=== PATIENT | male | born 1990 | race Two or more races ===

== ENCOUNTER 2023-05-26 15:51 | Emergency (ER) | payer OTHER ==
[~2023-05-26] VITALS: Ht 182.9 cm; Wt 86.1 kg
[2023-05-26] MEDS ORDERED: IBUP1TAB5 PO (18:32)
[2023-05-26] MEDS ORDERED: CYCL-839 PO (18:32)
[2023-05-26] MEDS ORDERED: HYDROcodone-ACET 5/325MG TAB PO ONE (18:45)
[2023-05-26] MEDS ORDERED: ONDANSETRON ODT 4 MG TAB PO ONE (18:45)
[2023-05-26 18:53] VITALS: BP 130/77; PULSE 80; RESP 16; TEMP 97.9; O2SAT 98
== END 2023-05-26 18:24 | disposition home or self-care (01) ==
LOC: ER 15:51
DX: S06.0X1A Concussion with loss of consciousness of 30 minutes or less, initial encounter (principal); S13.8XXA Sprain of joints and ligaments of other parts of neck, initial encounter; S33.5XXA Sprain of ligaments of lumbar spine, initial encounter; S00.83XA Contusion of other part of head, initial encounter; S20.214A Contusion of middle front wall of thorax, initial encounter; R10.9 Unspecified abdominal pain; Z79.899 Other long term (current) drug therapy; V43.52XA Car driver injured in collision with other type car in traffic accident, initial encounter; Y93.I9 Activity, other involving external motion; Y92.89 Other specified places as the place of occurrence of the external cause; Y99.8 Other external cause status
CPT/HCPCS: 70450; 70486; 71250; 72125; 74176; 93005